=== PATIENT | male | born 1955 | race Caucasian/White ===

== ENCOUNTER 2020-08-18 08:11 | Outpatient (CLI) | payer MEDICARE ==
--- NOTE | 2020-08-18 13:39 | MRI ---
EXAM: Left knee MRI without contrast: HISTORY: Tear medial meniscus left knee, pain COMPARISON: None FINDINGS: Multiplanar, multisequence MRI examination of the knees performed. No evidence for significant joint effusion. Heterogeneous signal within the patellar and medial and lateral. Without extensive full-thickness car tilage loss. Medial meniscus: Extensive complex tear medial meniscus from the posterior root into the body with a flap component at the level of the body extending caudally into the tibial recess as well as a small flap noted anteriorly off the posterior root Lateral meniscus: Unremarkable. Anterior cruciate ligament:Intact. Posterior cruciate ligament: Intact. Medial collateral ligament complex: Intact. Lateral collateral ligament complex: Intact. Quadriceps and patellar tendons: Intact. Extensor mechanism: Unremarkable. No evidence for acute osteochondral defect or abnormal marrow edema signal. IMPRESSION: Extensive complex tear medial meniscus with flap components. Heterogeneous altered signal within tricompartment cartilage.
== END 2020-08-18 08:12 | disposition home or self-care (01) ==
LOC: SCSMRI 08:11
PROVIDERS: ATTEND Orthopaedic Surgery
DX: S83.232A Complex tear of medial meniscus, current injury, left knee, initial encounter (principal)

== ENCOUNTER 2020-11-17 06:47 | Outpatient (CLI) | payer MEDICARE ==
[2020-11-17 14:56] LABS: Anion Gap 11 mmol/L (10-20); BUN (Urea Nitrogen) 10 mg/dL (8.4-25.7); Calc. Creatinine Clearance 0 mL/min (70-130); Calcium 8.9 mg/dL (7.8-10.44); Carbon Dioxide 27 mmol/L (23-31); Chloride 105 mmol/L (98-107); Glucose 138 mg/dL (80-115); Sodium 139 mmol/L (136-145)
[2020-11-17 15:09] LABS: #Monocytes 0.4 10x3/uL (0.0-1.1); #Neutrophils 2.7 10x3/uL (1.5-8.4); %Basophils 0.6 % (0.0-2.0); %Eosinophils 0.2 % (0.0-6.0); %Lymphocytes 35.9 % (18.0-47.0); %Monocytes 8.6 % (0.0-10.0); %Neutrophils 54.5 % (40.0-75.0); Hemoglobin 12.4 g/dL (14.0-18.0); Mean Corpuscular HGB CONC 32.8 G/DL (32.0-36.0); Mean Corpuscular Hemoglobin 30.7 PG (27.0-33.0); Mean Corpuscular Volume 93.6 fl (80.0-100.0); Mean Platelet Volume 9.4 fl (7.4-10.4); Platelet Count 186 10x3/uL (130-400); RBC Distribution Width 13.1 % (11.5-14.5); Red Blood Cell (RBC) Count 4.04 10x6/uL (4.40-5.80)
[2020-11-18 02:23] LABS: SARS-CoV-2 MS2 Positive; SARS-CoV-2 N Gene Negative; SARS-CoV-2 S Gene Negative; SARS-CoV-2 by NAA Not Detected (NotDetected); SARS-CoV-2 orf1ab Negative
== END 2020-11-17 06:48 | disposition home or self-care (01) ==
LOC: LABBT 06:47
PROVIDERS: ATTEND Orthopaedic Surgery
DX: Z01.818 Encounter for other preprocedural examination (principal); Z20.822 Contact with and (suspected) exposure to COVID-19; S83.207A Unspecified tear of unspecified meniscus, current injury, left knee, initial encounter
CPT/HCPCS: 80048; 85025; 93005; U0003; 87635; 93010

== ENCOUNTER 2020-11-20 09:12 | Day surgery (SDC) | payer MEDICARE ==
[2020-11-18 12:14] VITALS: BMI 30.7
[2020-11-20] MEDS ORDERED: Ketorolac Tromethamine 30 MG/ML VIAL ONE (09:46)
[2020-11-20] MEDS ORDERED: Ondansetron PF 4 MG/2 ML Vial ONE (09:46)
[2020-11-20] MEDS ORDERED: Bupivacaine HCl 0.5%/Epinephrine 1:200,000/PF 30 ml Vial ONE (09:46)
[2020-11-20] MEDS ORDERED: Lidocaine 2% w/Epinephrine 1:200K 20 ML VIAL ONE (09:46)
[2020-11-20] MEDS ORDERED: Dexamethasone 20 MG/5 ML VIAL ONE (09:46)
[2020-11-20] MEDS ORDERED: PROPOFOL 200 MG/20 ML VIAL ONE (09:46)
[2020-11-20] MEDS ORDERED: PROPOFOL 20 ML ONE (10:01)
--- NOTE | 2020-11-20 17:15 | OP ---
DATE OF PROCEDURE: 11/20/2020 PREOPERATIVE DIAGNOSIS: Left knee complex tear posterior horn and body of medial meniscus. POSTOPERATIVE DIAGNOSES: 1. Left knee complex tear posterior horn and body of medial meniscus. 2. Torn discoid lateral meniscus. PROCEDURE PERFORMED: Knee arthroscopy with partial, medial, and lateral meniscectomies. BRAND PROTECTION MANAGER: None. ESTIMATED BLOOD LOSS: Minimal. COMPLICATIONS: None. ANESTHESIA: The patient did have a general anesthetic as well as a local block. DISPOSITION: He went to recovery room in stable condition. INDICATIONS: Mr. Argueta is an active 65-year-old male, who has failed nonoperative treatment for knee pain and was found to have a significant tear of the medial meniscus. At this time, he opted to have surgery. DESCRIPTION OF PROCEDURE: After all appropriate consent forms were explained and signed, he was taken back to the operating room and at this time was given a general anesthetic. Once the level of anesthesia was appropriate, a tourniquet was placed on the left thigh and leg was placed in the arthroscopic leg burnett. The limb was then prepped and draped in standard surgical fashion. The limb was exsanguinated and the tourniquet was taken to 300 mmHg. Inferolateral portal was established and scope was placed into the knee joint. A needle localization technique was then used to make a medial working portal. Diagnostic arthroscopy commenced in the notch. ACL and PCL were found to be intact. We did note that there was some significant crystal formation throughout the knee, whether this was gout or pseudogout in appearance. The medial compartment was evaluated. The femur and tibia were overall in good condition. However, there was significant tearing noted in the posterior horn and body of the medial meniscus with a large undersurface flap component. Partial meniscectomy was performed using meniscal biter and shaver to clean the meniscus back to a stable base. We then turned our attention to the lateral compartment. There was a discoid lateral meniscus with a tear noted towards the notch area with a large amount of crystallization being expelled. At this time, we just used a shaver to open up this torn portion of the meniscus and to remove 4 meniscal tissue as well as crystallized tissue. We did not take this back any further than needed as the entire lateral meniscus was basically crystallized and it was throughout its entire thickness. The femur and tibia overall in good condition. The gutters were swept through, no loose bodies were noted. We then went to the suprapatellar pouch, where there was noted to be a fair amount of crystallization and these were removed with the shaver as best as possible. The patellofemoral joint showed the trochlea to overall be in good condition. There was a small chondral flaps that were unstable on the patella, which were taken down to a stable base. At this time, we went through the knee one more time, removing any loose crystalline deposits and once this was done, we then went ahead and removed the scope, drained the knee and closed these portal with a simple nylon stitch. A bulky sterile dressing was then applied and the tourniquet was let down. Toes pinked up nicely. The patient was awakened and taken to recovery room in stable condition. All counts were correct at the end of the case and he did receive preoperative IV antibiotics. Job ID: [id number]
== END 2020-11-20 13:39 | disposition home or self-care (01) ==
LOC: SDC 09:12
PROVIDERS: ATTEND Orthopaedic Surgery
PROC: 0SBD4ZZ Excision of Left Knee Joint, Percutaneous Endoscopic Approach (ICD-10-PCS; principal; 2020-11-20)
PROC: 0SBD4ZZ Excision of Left Knee Joint, Percutaneous Endoscopic Approach (ICD-10-PCS; 2020-11-20)
DX: S83.232A Complex tear of medial meniscus, current injury, left knee, initial encounter (principal); S83.282A Other tear of lateral meniscus, current injury, left knee, initial encounter; Z79.82 Long term (current) use of aspirin; Z79.899 Other long term (current) drug therapy
CPT/HCPCS: J0690; J2704